=== PATIENT | female | born 1985 | race Caucasian/White ===

== ENCOUNTER 2021-03-18 00:12 | Inpatient (IN) | payer OTHER ==
[2021-03-18] MEDS ORDERED: Ringers Lactate 1,000 ML IV ONE (04:48)
[2021-03-18] MEDS ORDERED: OXYTOCIN/LR 20 UNIT/1,000 ML BAG IV ONE (05:38)
[2021-03-18] MEDS ORDERED: METHYLERGONOVINE 0.2MG/ML AMP IM PRN (05:41)
[2021-03-18] MEDS ORDERED: Ringers Lactate 1,000 ML IV PRN (05:41)
[2021-03-18] MEDS ORDERED: PROMETHAZINE INJ 25 MG/ML AMP IM PRN (05:41)
[2021-03-18] MEDS ORDERED: BUTORPHANOL 1 MG/ML INJ IV PRN (05:41)
[2021-03-18] MEDS ORDERED: MEPERIDINE HCL 25 MG/ML SYR IV PRN (05:41)
[2021-03-18] MEDS ORDERED: CARBOPROST TROME 250 MCG/ML IM PRN (05:41)
[2021-03-18] MEDS ORDERED: OXYTOCIN/LR 20 UNIT/1,000 ML BAG IV SCH ×2 (06:00→13:00)
[2021-03-18] MEDS ORDERED: Ringers Lactate 1,000 ML IV SCH (06:00)
[2021-03-18 06:17] LABS: Basophils % 0.5 % (0-1.3); Hematocrit 35.9 % (36.0-45.0); Lymphocytes % 24.5 % (15.3-44.8); MPV 9.6 fL (7.6-11.3); RBC Red Blood Cell Count 3.94 M/uL (3.86-4.86)
[2021-03-18 06:55] LABS: Urine Appearance CLEAR (Clear); Urine Bilirubin NEGATIVE (Negataive); Urine Blood NEGATIVE (Negative); Urine Color YELLOW (Yellow); Urine Glucose NEGATIVE (Negative); Urine Protein NEGATIVE (Negative)
[2021-03-18 07:04] LABS: Calcium Oxalate Crystals- Ur FEW (NONE SEEN); Urine Bacteria 20-50 /HPF (<20); Urine RBC <5 /HPF (NONE SEEN); Urine Urothelial Cells <5 /HPF (NONE SEEN)
[2021-03-18 07:38] VITALS: BMI 28.0
[2021-03-18] MEDS ORDERED: FAMOTIDINE 20 MG/2 ML VIAL IV ONE ×2 (08:14→08:37)
[2021-03-18] MEDS ORDERED: 0.2% ROPIVACAINE (200 MG/100 ML) BAG EP ONE (08:47)
[2021-03-18] MEDS ORDERED: FENTANYL CITR 100 MCG/2 ML IV ONE (08:47)
[2021-03-18] MEDS ORDERED: ROPIVACAINE HCL 0.2% 20ML AMP EP ONE (08:48)
[2021-03-18] MEDS ORDERED: LIDOCAINE 1% MPF 30 ML VIAL ONE (09:28)
--- NOTE | 2021-03-18 11:29 | PREOPHP ---
Date of Admission: 03/18/2021 History Of Present Illness: This is a 35-year-old 2, para 1, at 40 weeks gestation. History of herpes, herpes free interval. The patient is Rh positive, immune to Rubella. Negative strep. Allergies: TO ASPIRIN. Family History: Noncontributory. Social History: She does not smoke. Physical Examination: HEENT: Clear. Pupils equal, round, reactive to light and accommodation. Conjunctivae well perfused . No oral, lingual, or buccal lesions. Chest and Lungs: Clear. Heart: Without murmurs, thrills, heaves, or rubs. Breasts: Not examined. Abdomen: Term size. Baby is vertex. Extremities: Clear. Assessment/plan: She is 4.5 cm, well applied, froy irregularly at this point. Wishes to avoi d Pitocin if possible. Rupture of membranes, clear fluid. We will have her put some warm moist towe ls on her breasts to stimulate her breasts to initiate oxytocin release. If this is not effective, l ater today we will begin oxytocin. Full labor talk given. Anticipate delivery sometime later today. JESUS/SCOTTIE Voice ID: [id number]
[2021-03-18] MEDS ORDERED: ACETAMINOPHEN 500 MG TAB PO PRN (12:56)
[2021-03-18] MEDS ORDERED: IBUPROFEN 200 MG TAB PO PRN (12:56)
[2021-03-18] MEDS ORDERED: Oxycodone HCl/Acetaminophen 1 TAB TAB PO PRN ×2 (12:56)
[2021-03-18] MEDS ORDERED: BISACODYL 10 MG RECTAL SUPP PR PRN (12:56)
[2021-03-18] MEDS ORDERED: DIPHENHYDRAMINE 25 MG TAB/CAP PO PRN (12:56)
[2021-03-18] MEDS ORDERED: DOCUSATE NA/SENNA CONC 1 TAB PO PRN (12:56)
--- NOTE | 2021-03-18 16:20 | PN ---
The patient has an epidural. She is very comfortable even on 6 mL an hour. She is about 9.5 right a t 10. We had her push once, not very effective. Therefore, we will wait until she feels more of the urge to push. Baby looks good. She is in about 0, almost +1 station. It should not be too long un til she is ready to begin pushing and deliver the baby. JESUS/SCOTTIE Voice ID: [id number] Report ID: [id number]
--- NOTE | 2021-03-18 20:17 | OP ---
Surgeon: Rk Ron MD Procedure In Detail: Kiera Landry is a 35-year-old, 2, para 1, at 40 weeks gestation. Started on Pitocin this morning. Rupture of membranes at approximately 4 cm, clear fluid. The patie nt requested and received epidural anesthesia, which gave excellent effect during the remainder of la bor and delivery. Second stage of approximately 30 minutes. Spontaneous vaginal delivery of an fabio mated 7 pounds plus male infant, Apgars 9 and 9. Very small first-degree laceration to posterior fou rchette requiring 2 [id number] stitches of 2-0 chromic. Schultze delivery of the placenta, whic h inspected and noted to be intact and normal. Less than 200 mL blood loss. The patient is Rh posit leyla, immune to Rubella. Negative strep. Tolerated all procedures well. Final Diagnoses: Term intrauterine at 40 weeks, labor induction, vaginal delivery, epidura l anesthesia. JESUS/SCOTTIE Voice ID: [id number] Report ID: [id number]
[2021-03-18 21:24] LABS: RPR (Rapid Plasma Reagin) NON-REACT (NON-REACT)
--- NOTE | 2021-03-19 08:42 | DS ---
Hospital Course: A 35-year-old 2, para 1, 40 weeks' gestation, delivered a 7-pound 12-ounce male infant, Apgars 9 and 9. Epidural anesthesia. Very small first-degree laceration to posterior f ourchette, requiring 2 [id number] stitches 2-0 chromic. Schultze delivery of the placenta which was inspected and noted to be heavily calcified but otherwise normal. Less than 200 cc blood loss. Beta strep negative. Rh positive. Immune to rubella. . Afebrile. Ambulating and voidi ng. Lochia is normal. No post epidural problems. Will be dismissed to return to my office in [address] [place] [address] for followup to report any temperature elevation of 100 degrees or greater, severe pain, heavy ble eding, or any other type of abnormalities. Requests no analgesics on dismissal. She has had her Tda p immunization during the . Final Diagnosis: Term intrauterine at 40 weeks, vaginal delivery, epidural anesthesia. JESUS/SCOTTIE Voice ID: [id number] Report ID: [id number]
[2021-03-19 11:53] VITALS: BP 89/55; TEMP 98.6
[2021-03-21 21:12] LABS: HBsAG Nonreactive (Nonreactive)
== END 2021-03-19 15:45 | disposition home or self-care (01) | DRG 806 ==
LOC: 2ND-WC 05:25
PROVIDERS: ADMIT Specialist; ATTEND Specialist
PROC: 10E0XZZ Delivery of Products of Conception, External Approach (ICD-10-PCS; principal; 2021-03-18)
PROC: 10907ZC Drainage of Amniotic Fluid, Therapeutic from Products of Conception, Via Natural or Artificial Opening (ICD-10-PCS; 2021-03-18)
PROC: 0HQ9XZZ Repair Perineum Skin, External Approach (ICD-10-PCS; 2021-03-18)
PROC: 3E033VJ Introduction of Other Hormone into Peripheral Vein, Percutaneous Approach (ICD-10-PCS; 2021-03-18)
DX: O70.0 First degree perineal laceration during delivery (principal); O98.32 Other infections with a predominantly sexual mode of transmission complicating childbirth; Z37.0 Single live birth; A60.09 Herpesviral infection of other urogenital tract; Z3A.40 40 weeks gestation of pregnancy
CPT/HCPCS: 36415; 81001; 85025; 86592; 86901; 87086; 87088; 87340; J2210; J2590; J2795; J3010; J7120; U0003